=== PATIENT | female | born 1980 | race Caucasian/White ===

== ENCOUNTER → 2022-01-25 16:20 | Outpatient (CLI) | payer OTHER, SELFPAY ==
--- NOTE | ~2022-01-25 | US_ITS ---
US thyroid INDICATION: Enlarged thyroid gland TECHNIQUE: Real-time sonographic images of the thyroid gland were obtained. COMPARISON: No prior studies for comparison. FINDINGS: The right thyroid lobe measures 4.4 x 1.4 x 1.5 cm. The left thyroid lobe measures 5 x 1.5 x 1.7 cm. There is normal echotexture and echogenicity throughout the thyroid gland. No discrete nod ules identified. Normal vascular flow is present. IMPRESSION: 1. Mildly enlarged thyroid gland. No discrete mass. Reviewed, dictated and finalized at location A.
== END ==
PROVIDERS: PCP Nurse Practitioner Family; Visit Provider Nurse Practitioner
DX: E07.9 Disorder of thyroid, unspecified (principal); E04.9 Nontoxic goiter, unspecified
CPT/HCPCS: 76536

== ENCOUNTER → 2022-04-11 16:45 | Outpatient (CLI) | payer OTHER, SELFPAY ==
--- NOTE | ~2022-04-11 | MM_ITS ---
EXAMINATION: MM screening [facility] BI w ricky HISTORY: Screening mammogram TECHNIQUE: Craniocaudal and mediolateral oblique 3-D tomosynthesis images were obtained and synthetic 2-D images were generated. CAD analysis was submitted and interpreted. COMPARISON: 12/13/2015, 01/24/2010 BREAST PARENCHYMAL COMPOSITION: The breasts are heterogeneously dense, which may obscure small masses . FINDINGS: No suspicious mass, calcification, or architectural distortion are identified in either latonya ast to suggest malignancy. There has been no suspicious interval change. IMPRESSION: 1. No mammographic evidence of malignancy. 2. Recommend routine screening mammography in one year. BI-RADS Category 1: Negative Reviewed, dictated and finalized at location A. LLECTUAL PROPERTY COUNSEL
== END ==
PROVIDERS: PCP Nurse Practitioner Family; Visit Provider Nurse Practitioner
DX: Z12.31 Encounter for screening mammogram for malignant neoplasm of breast (principal)
CPT/HCPCS: 77063; 77067

== ENCOUNTER → 2022-06-29 08:55 | Outpatient (CLI) | payer OTHER, SELFPAY ==
--- NOTE | ~2022-06-29 | XR_ITS ---
Right foot Technique: AP, oblique, and lateral views were obtained. Clinical History: Pain Findings: No acute fracture or dislocation is seen. Osseous alignment is anatomic. There is minimal d egenerative change at the lateral aspect of the first MTP joint. Soft tissues are unremarkable. Impression: No fracture or dislocation. Minimal degenerative change of the lateral aspect of the first MTP joint. Reviewed, dictated and finalized at location . ET CHECKER Impression: No fracture or dislocation. Minimal degenerative change of the lateral aspect of the first MTP joint.
== END ==
PROVIDERS: PCP Nurse Practitioner Family; Visit Provider Nurse Practitioner Family
DX: M79.671 Pain in right foot (principal)
CPT/HCPCS: 73630

== ENCOUNTER → 2022-08-28 16:28 | Outpatient (CLI) | payer OTHER, SELFPAY ==
--- NOTE | ~2022-08-28 | MR_ITS ---
EXAMINATION: MR ankle RT wo con DATE: 08/28/2022 17:24 INDICATION: Right ankle pain. TECHNIQUE: Magnetic resonance imaging (MRI) of the right ankle was performed without intravenous cont rast. Sequences included sagittal PD-weighted FS FSE, sagittal PD-weighted FSE, coronal PD-weighted F S FSE, coronal PD-weighted FSE, axial PD-weighted FS FSE, and axial PD-weighted FSE. COMPARISON: Right foot radiographs 06/29/2022 FINDINGS: Medial ankle ligaments: There are changes of prior sprain of superficial component of deltoid ligament characterized by thick ening and increased signal intensity. The deep component of deltoid ligament is normal. There is a sk in marker medial to the deltoid ligament. Lateral ankle ligaments: The anterior and posterior talofibular ligaments, calcaneofibular ligament, and anterior and posterio r tibiofibular ligaments are intact. Tendons: There is a longitudinal split tear of peroneus brevis tendon. Peroneus longus tendon is normal. The a nterior ankle tendons are normal. The medial ankle tendons and Achilles tendon are normal. Plantar fascia: Normal. There is an enthesophyte at the calcaneal attachment. Bones/other: Bone alignment is normal. No fracture. There is a type II navicular. 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 The talar dome is normal. Fluid: There are small ankle and subtalar joint effusions. IMPRESSION: 1. Sprain of superficial component of deltoid ligament. Reviewed, dictated and finalized at location A.
== END ==
PROVIDERS: PCP Nurse Practitioner Family; Visit Provider Podiatrist Foot & Ankle Surgery
DX: S93.421A Sprain of deltoid ligament of right ankle, initial encounter (principal); T14.90XA Injury, unspecified, initial encounter
CPT/HCPCS: 73721

== ENCOUNTER 2023-06-10 12:05 | Outpatient (CLI) | payer OTHER, SELFPAY ==
[2023-06-10 13:49] LABS: Influenza A QL RT-PCR Negative (Negative); Influenza B QL RT-PCR Negative (Negative); RSV RNA, RT-PCR Negative (Negative); SARS-CoV-2 RNA PCR Positive (Negative)
== END 2023-06-10 12:06 | disposition home or self-care (01) ==
LOC: ANHLAB 12:07
PROVIDERS: PCP Nurse Practitioner Family; Visit Provider Nurse Practitioner Family
DX: U07.1 COVID-19 (principal)
CPT/HCPCS: 87637

== ENCOUNTER 2023-08-16 16:08 | Outpatient (CLI) | payer OTHER, SELFPAY ==
--- NOTE | ~2023-08-16 | MM_ITS ---
EXAMINATION: MM screening [facility] BI w ricky HISTORY: Screening TECHNIQUE: Craniocaudal and mediolateral oblique 3-D tomosynthesis images were obtained and synthetic 2-D images were generated. CAD analysis was submitted and interpreted. COMPARISON: Comparison to multiple prior studies sequentially, with oldest reviewed study dated 01/2016. BREAST PARENCHYMAL COMPOSITION: The breasts are heterogeneously dense, which may obscure small masses . FINDINGS: There is no evidence of suspicious mass, calcification, or architectural distortion to sugg est malignancy in either breast. There has been no suspicious interval change. IMPRESSION: 1. No mammographic evidence of malignancy. 2. Recommend routine screening mammography in one year. BI-RADS Category 1: Negative Reviewed, dictated and finalized at location A.
== END 2023-08-16 16:09 ==
LOC: MICIMG 16:09
PROVIDERS: PCP Nurse Practitioner Family; Visit Provider Nurse Practitioner
DX: Z12.31 Encounter for screening mammogram for malignant neoplasm of breast (principal)
CPT/HCPCS: 77063; 77067

== ENCOUNTER 2023-11-14 08:20 | Outpatient (CLI) | payer OTHER, SELFPAY ==
--- NOTE | ~2023-11-14 | US_ITS ---
EXAMINATION: US soft tissue groin LT DATE: 11/14/2023 08:43 INDICATION: Left groin lump TECHNIQUE: Multiple grayscale and Doppler ultrasound images of the region of concern at the left groi n were obtained. COMPARISON: None FINDINGS: There is a normal sized and appearing left inguinal lymph node measuring 12 x 5 x 9 mm with typical c entral echogenic fatty hilum. There is a small fat-containing left inguinal hernia which increases in size with Valsalva at which time it measured approximately 3.6 x 3.0 x 0.8 cm. The hypoechoic orific e to the hernia measures approximately 5-6 mm in diameter. No visible herniated bowel. IMPRESSION: 1. Small fat-containing left inguinal hernia. Reviewed, dictated and finalized at location A.
== END 2023-11-14 08:21 ==
LOC: MICIMG 08:21
PROVIDERS: PCP Nurse Practitioner Family; Visit Provider Nurse Practitioner
DX: K40.90 Unilateral inguinal hernia, without obstruction or gangrene, not specified as recurrent (principal)
CPT/HCPCS: 76882

== ENCOUNTER 2024-04-05 08:30 | Emergency (ER) | payer OTHER, SELFPAY ==
[2024-04-05 08:41] VITALS: BP 115/85; PULSE 125; RESP 16; TEMP 36.6; O2SAT 99
--- NOTE | 2024-04-05 08:52 | ED_ITS ---
HPI - General Adult General Chief complaint: Abdominal Pain Stated complaint: fever,abdominal cramping Time Seen by Provider: 04/05/24 08:50 Source: patient Mode of arrival: ambulatory Limitations: no limitations History of Present Illness HPI narrative: 44 yo F presents with c/o ABD pain, cramping, diarrhea for 5 to 6 days. Has had low grade fever every day since symptoms started. No N/V. Reports that she is hungry but full quicker than usual. Has been feelin bloated for 4 days, today feels like she can't stand up straight due to pain. NO URI symptoms. Denies urinary symptoms. LMP 1 month ago. All systems reviewed and negative except as noted above. Related Data Home Medications Medication Instructions Recorded Confirmed multivitamin 1 tablet PO DAILY 11/14/21 04/05/24 norgestimate 0.25 mg-ethinyl 1 tablet PO DAILY 11/14/21 04/05/24 estradiol 35 mcg tablet (Sprintec (28)) Allergies Allergy/AdvReac Type Severity Reaction Status Date / Time No Known Allergies Allergy Unknown Verified 04/05/24 08:37 Review of Systems Review of Systems: CONSTITUTIONAL: reports fever, chills, or sweats. EYES: Denies visual changes, redness, or discharge. ENT: Denies rhinorrhea, congestion, sore throat, or otalgia. CARDIOVASCULAR: Denies chest pain, palpitations, or edema. RESPIRATORY: Denies cough or dyspnea. GASTROINTESTINAL: reports abdominal pain, cramping, diarrhea, distension. Denies nausea, vomiting GENITOURINARY: Denies dysuria or hematuria. SKIN: Denies rash or itching. MUSCULOSKELETAL: Denies back pain, joint pain, or myalgia. NEUROLOGIC: Denies headache, numbness, or weakness. PSYCHIATRIC: Denies anxiety or depression. All other systems reviewed are negative, except as documented in HPI. [facility] [place] Past Medical History Medical History Acute pain of right foot Allergies BMI 29.0-29.9,adult BMI 30.0-30.9,adult Dysuria Encounter to establish care Enlarged thyroid gland mild; per US on 02/12/22; normal TSH and free t4 Flu-like symptoms GERD (gastroesophageal reflux disease) Gout Wellness examination Surgical History Surgical History H/O umbilical hernia repair Family History Family History Father Skin cancer Hypertension Grandparent Ovarian cancer Grandparent Heart disease Social History Social History Smoking status: Never smoker Alcohol intake: current Alcohol use details: 0-3 drinks per week Substance use: never Substance use type: does not use Comments At time of signature, agree with nursing past medical, surgical, social and family history. There is no relevant family history pertinent to the presenting complaint. Exam 2 Narrative: GENERAL: This is a well-nourished, well-developed patient, in no apparent distress. HEAD: normocephalic, atraumatic. EYES: PERRL. Sclera clear/white. Vision is grossly intact. EARS: External ears normal NOSE: External nose normal NECK: Neck supple, non-tender without lymphadenopathy, masses or thyromegaly. CARDIOVASCULAR: Regular rate and rhythm without murmurs, gallops, or rubs. RESPIRATORY: Clear to auscultation. Breath sounds equal bilaterally. No wheezes, rales, or rhonchi. GASTROINTESTINAL: Abdomen soft, Mild tenderness to right upper quadrant and epigastrium but worse to umbilical, nondistended. Bowel sounds are active. No hepato-splenomegaly, or palpable masses. No guarding. SKIN: warm, Dry, intact with no suspicious lesions or rash, good texture and turgor. NEURO: awake, alert, and oriented to person, place and time. There were no obvious focal neurologic abnormalities. EXTREMITIES: No joint tenderness, effusion, or edema noted. Course Course Level of Care: Express Care Visit Vital Signs Vital signs: Vital Signs Temperature 36.6 C 04/05/24 08:41 Pulse Rate 125 H 04/05/24 08:41 Respiratory Rate 16 04/05/24 08:41 Blood Pressure 115/85 04/05/24 08:41 Pulse Oximetry 99 04/05/24 08:41 Oxygen Delivery Room Air 04/05/24 08:41 Temperature 36.6 C 04/05/24 08:41 Pulse Rate 125 H 04/05/24 08:41 Respiratory Rate 16 04/05/24 08:41 Blood Pressure 115/85 04/05/24 08:41 Pulse Oximetry 99 04/05/24 08:41 Oxygen Delivery Room Air 04/05/24 08:41 Reviewed Transfer Transfered to: [facility] Transportation: Other ( private car) Transfer rationale: umbilical ABD pain, diarrhea, low grade fever. ABD tenderness. transferrin to ER for labs and CT scan Accepting physician: Dr. Matos Medical Decision Making MDM Narrative Medical decision making narrative: transferring patient to [facility] ER for further evaluation of her abdominal pain pain and tenderness. Patient is aware of diagnosis, understands and agrees to treatment plan. Anticipatory guidance given. Patient agrees to follow-up as directed and is aware of reasons to seek care at the emergency department. Portions of this record may have been created with voice recognition software Vital Signs Vital Signs: Vital Signs Temperature 36.6 C 04/05/24 08:41 Pulse Rate 125 H 04/05/24 08:41 Respiratory Rate 16 04/05/24 08:41 Blood Pressure 115/85 04/05/24 08:41 Pulse Oximetry 99 04/05/24 08:41 Oxygen Delivery Room Air 04/05/24 08:41 Temperature 36.6 C 04/05/24 08:41 Pulse Rate 125 H 04/05/24 08:41 Respiratory Rate 16 04/05/24 08:41 Blood Pressure 115/85 04/05/24 08:41 Pulse Oximetry 99 04/05/24 08:41 Oxygen Delivery Room Air 04/05/24 08:41 Discharge Plan Discharge Clinical Impression: Abdominal pain Patient Disposition: Acute Care Hospital Condition: Stable Prescriptions: No Action norgestimate-ethinyl estradiol [Sprintec (28)] 0.25-35 mg-mcg tablet 1 tablet PO DAILY multivitamin Tablet 1 tablet PO DAILY Follow-up/Referrals: Sapna Matos, JESSE [Primary Care Provider] - Time of Disposition: 09:11
== END 2024-04-05 09:11 | disposition short-term general hospital (02) ==
PROVIDERS: Emergency Provider Nurse Practitioner Family; PCP Nurse Practitioner Family
DX: R10.33 Periumbilical pain (principal); R10.11 Right upper quadrant pain; R10.13 Epigastric pain; K21.9 Gastro-esophageal reflux disease without esophagitis; M10.9 Gout, unspecified
CPT/HCPCS: 99212; G0463

== ENCOUNTER 2024-07-06 08:03 | Emergency (ER) | payer OTHER, SELFPAY ==
--- NOTE | 2024-07-06 08:04 | ED.URI ---
HPI - URI/Sore Throat General Chief Complaint: Upper Respiratory Infection Stated Complaint: fever,throat hurts Time Seen by Provider: 07/06/24 08:14 Source: patient, RN notes reviewed and old records reviewed Mode of arrival: ambulatory Limitations: no limitations History of Present Illness HPI Narrative: 44-year-old female presents to the [facility] with complaints of a sore throat and feeling feverish since yesterday. Has taken Tylenol. Onset (ago): day(s) (1) Treatments prior to arrival: acetaminophen Related Data Home Medications ?Medication ?Instructions ?Recorded ?Confirmed ?Last Taken ?Type multivitamin 1 tablet PO DAILY 11/14/21 04/07/24 Unknown History Allergies Allergy/AdvReac Type Severity Reaction Status Date / Time No Known Allergies Allergy Unknown Verified 07/06/24 08:21 Review of Systems Review of Systems: All systems reviewed & are unremarkable except as noted in HPI and below Constitutional: Constitutional: Reports as per HPI, Reports body ache(s), Reports fatigue and Reports fever(s) ENT: Reports as per HPI and Reports sore throat Cardiovascular: Cardiovascular: Reports no additional cardiovascular complaints, Denies chest pain and Denies dyspnea Respiratory: Respiratory: Reports no additional respiratory complaints, Denies chest congestion, Denies cough and Denies dyspnea Musculoskeletal: Musculoskeletal: Reports no additional musculoskeletal complaints Integumentary/Breasts: Skin/Breast: Reports system reviewed and no additional complaints, except as docu PMFSH Past Medical History Medical History Portal vein thrombosis Mesenteric vein thrombosis Flu-like symptoms Dysuria BMI 29.0-29.9,adult Wellness examination Gout Acute pain of right foot Enlarged thyroid gland mild; per US on 02/12/22; normal TSH and free t4 BMI 30.0-30.9,adult Encounter to establish care GERD (gastroesophageal reflux disease) Allergies Surgical History Surgical History H/O umbilical hernia repair Family History Family History Father Skin cancer Hypertension Grandparent Ovarian cancer Grandparent Heart disease Social History Social History Smoking status: Never smoker Alcohol intake: current Alcohol use details: 0-3 drinks per week Substance use: never Substance use type: does not use Comments At the time of my signature, I reviewed and agree with the nursing past medical, surgical, social, and family history. There is no relevant family history pertinent to the patient complaint. Exam Const: General: cooperative, healthy appearing, comfortable, no acute distress, well developed, alert and well nourished Nutritional Appearance: well nourished Orientation/consciousness: patient oriented x3 Limitations: no limitations HENMT: Head: normal to inspection Eyes: General: appearance normal, both eyes and all related structures Alignment and Position: alignment normal Neck: Neck: normal visual inspection, full ROM, no lymphadenopathy and no meningeal signs Chest: Chest palpation & inspection: normal inspection of the chest Resp: Effort & Inspection: normal respiratory effort and able to speak in complete sentences Auscultation: clear to auscultation bilaterally, no crackles, no rales, no rhonchi and no wheezes Cardio: Rate: regular rate Skin: General skin exam: normal color and no rashes or lesions noted Neuro: General: patient oriented x3, gait normal, moves all extremities and no meningeal signs Cognition (Neuro): normal cognition Speech: normal speech Gait exam (Neuro): Normal gait present Extrem: General: normal to inspection, full ROM, capillary refill normal and normal gait Psych: Appearance: grossly normal and well kempt Mental Status: mental status grossly normal Speech and movement: Normal speech and movement present and Clear speech present Affect: normal affect Attitude: cooperative Course Course Level of Care: Express Care Visit Vital Signs Vital signs: Vital Signs Temperature 98.8 F 07/06/24 08:18 Pulse Rate 131 H 07/06/24 08:18 Respiratory Rate 16 07/06/24 08:18 Blood Pressure 147/82 H 07/06/24 08:18 Pulse Oximetry 98 07/06/24 08:18 Oxygen Delivery Room Air 07/06/24 08:18 Temperature 98.8 F 07/06/24 08:18 Pulse Rate 131 H 07/06/24 08:18 Respiratory Rate 16 07/06/24 08:18 Blood Pressure 147/82 H 07/06/24 08:18 Pulse Oximetry 98 07/06/24 08:18 Oxygen Delivery Room Air 07/06/24 08:18 Reviewed MDM - URI/Sore Throat MDM Narrative Medical decision making narrative: Patient sitting in exam room. Nontoxic, vitals stable. Patient is in no acute distress. Patient presents for sore throat and fever since yesterday. Has taken Tylenol. Flu and COVID are negative. Strep is positive. Patient is appropriate for outpatient treatment and follow-up. Patient states as a kid that ?amoxicillin does not work for me. ? will prescribe cefdinir. Patient appropriate for outpatient treatment and follow-up Discharge instructions reviewed with patient, as well as provided in writing per nursing staff. The instructions also include specific and strict return/GO TO THE ER as well as f/u information. All questions have been answered, and the patient deny any further questions with discharge and discharge plan. Some parts of this dictation were generated by voice recognition software and may contain typographical and/or grammatical inaccuracies. Differential Diagnosis Differential diagnosis: Likely upper respiratory infection, otitis media, viral infection, bronchitis, influenza and pharyngitis Lab Data Labs: Lab Results 07/06/24 07/06/24 Range/Units 08:58 08:59 POC Influenza A Ag Negative (Negative) POC Influenza B Ag Negative (Negative) POC SARS CoV-2 Ag Negative (Negative) POC Grp A Strep Screen Positive (Negative) Reviewed Critical Care Time Critical Care Time Critical Care Time: No Discharge Plan Discharge Clinical Impression: Strep pharyngitis Patient Disposition: Home, Self-Care Condition: Stable Instructions: Antibiotic Form, Strep Throat (ED) Additional Instructions: After 24-48 hours on antibiotics, Throw the toothbrush away, start using a new one. Please be sure to wash bed linens especially pillow cases. Repeat once you finish the antibiotics. Do not share drinks. Take Motrin alternating with Tylenol for pain and fever alternating every 4 hours. Increase fluids, avoid caffeine. Give plenty of water, juice, Gatorade, Pedialyte, ice pops in Jell-O Follow up with Primary provider if not getting better this week For new or worsening symptoms go directly to the emergency room Patient Language: Sami Prescriptions: New cefdinir 300 mg capsule 300 mg PO Q12H Qty: 20 0RF No Action multivitamin Tablet 1 tablet PO DAILY Follow-up/Referrals: Sapna Matos NP [Primary Care Provider] - 2 Weeks ([facility] follow up blood pressure check. 147/82) Stand Alone Forms: Work/School Release IP Time of Disposition: 08:31
[2024-07-06 08:18] VITALS: BP 147/82; PULSE 131; RESP 16; TEMP 37.1; O2SAT 98
[2024-07-06 09:00] LABS: EDCOVIDSCREEN Negative (Negative)
[2024-07-06 09:00] LABS: EDINFLUASCREEN Negative (Negative); EDINFLUBSCREEN Negative (Negative); EDSTREPNEGPOS1 Positive (Negative)
== END 2024-07-06 08:33 | disposition home or self-care (01) ==
PROVIDERS: Emergency Provider Nurse Practitioner; PCP Nurse Practitioner Family
DX: J02.0 Streptococcal pharyngitis (principal); Z20.822 Contact with and (suspected) exposure to COVID-19; M10.9 Gout, unspecified; K21.9 Gastro-esophageal reflux disease without esophagitis; Z86.718 Personal history of other venous thrombosis and embolism
CPT/HCPCS: 87426; 87804; 87880; 99213; G0463

== ENCOUNTER 2024-10-23 07:54 | Outpatient (CLI) | payer OTHER, SELFPAY ==
--- OUTSIDE RECORDS SUMMARY | 2024-10-23 07:59 | XMS_ITS | Clinical Summary ---
Author Organization [facility] Address [address] [place] [address] Care Team Providers Care Sub Arc Operator Name Role Phone Gurmeet Graf MD Unavailable [phone] Sapna Matos NP Primary Care Provider [phone] Claire Tran MD Unavailable [phone] Allergies No known active allergies Medications multivitamin with folic acid 400 mcg tablet Take 1 tablet by mouth daily Active apixaban 5 mg (74 tabs) tablets,dose pack Take 10 mg (2 tablets) by mouth 2 (two) times a day for 7 days, then take 5 mg (1 tablet) by mouth 2 (two) times a day thereafter. 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 Portal vein thrombosis 04/05/2024 Abdominal pain, generalized 04/05/2024 Fever, unspecified 04/05/2024 Encounter for contraceptive management 7 Palpitations 08/15/2016 Immunizations Immunization Administration Dates Next Due Influenza, Quadrivalent, Rec ombinant, Egg Free, Preservative Free, Intramuscular 02/01/2020,02/28/2018 Influenza, Quadrivalent, Spl it, Preservative Free, Intramuscular 02/16/2019,01/14/2017 Tdap 09/26/2018 Surgical History Surgery Date Site/Laterality Comments IN RPR UMBILICAL HERNIA < 5 YRS REDUCIBLE Umbilical Hernia Repair - (Added by TW Conv) Medical History Medical History Date Comments Umbilical hernia Family History Medical History Relation Name Comments Hypertension Father Family history of hypertension - (Added by TW Conv) Coronary artery disease Maternal Grandfather Family history of coronary artery disease - (Added by [employer] Conv) Ovarian cancer Maternal Grandmother Ovari an ca - (Added by [employer] Conv) Breast cancer Other Family history of malignant neoplasm of breast - Relation: Aunt (Added by TW Conv) Coronary artery disease Paternal Grandfather Family history of coronary artery disease - (Added by [employer] Conv) Relation Name Status Comments Father Alive Maternal Grandfather Maternal Grandmother Mother Alive Other Paternal Grandfather Social History Tobacco Use Types Packs/Day Years Used Date Smoking Tobacco: Former Smokeless Tobacco: Never Alcohol Use Standard Drinks/Week Comments Yes 0 (1 standard drink = 0.6 oz pur e alcohol) PHQ-2 Answer Date Recorded PHQ-2 Total Score (If total score is 3 or more points, staff should administer the PHQ-9) 0 08/18/2021 Exercise Vital Sign Answer Date Recorde d Days of Exercise per Week 5 days 2019 Minutes of Exercise per Session 30 min 11/23/2019 Personal Safety Answer Date Recorded Have you ever been in or are you currently in a harmful physical or emotional relationship or is someone making you feel afraid or unsafe? 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 Gender Identity Female 11/22/2019 8:08 AM CDT Sexual Orientation Straight 01/02/2021 8: 29 PM CDT Obstetrics History Para Term AB IAB SAB Ectopic Multiple Livin g Live Births 1 1 1 1 1 Date Outcome GA Total Labor Labor/2nd/3rd Weight Sex Type Anes PTL Anika A1 A5 Name Clin 2005 Term M Vag-S pont Living Last Filed Vital Signs Vital Sign Reading Time Taken Comments Blood Pressure 126/86 07/13/2024 8:31 AM CDT Pulse 84 07/13/2024 8:31 AM CDT Temperature 37 C (98.6 F) 07/13/2024 8:31 AM CDT Respiratory Rate 18 07/13/2024 8:31 AM CDT Oxygen Saturation 100% 07/13/2024 8:31 AM CDT Inhaled Oxygen Concentration - - Weight 88.9 kg (196 lb) 07/13/2024 8:31 AM CDT Height 173 cm (5' 8.11) 07/13/2024 8:31 AM CDT Body Mass Index 29.71 07/13/2024 8:31 AM CDT Plan of Treatment Health Maintenance Due Date Last Done Comments Colon Cancer Screening-Colonoscopy 1978 Hepatitis C Screening 1978 Hepatitis B Screening 1996 Cervical Cancer Screening 11/22/2019 11/21/2018 Breast Cancer Screening-Mammogram 11/29/2019 11/28/2018, 10/28/2014 Depression Screening 08/18/2022 08/18/2021, 09/27/19 Regular Well Visit/Exam 18-64 08/18/2022 08/18/2021, 11/23/2020, 11/23/2019, Additional history exists Influenza Vaccine (Season Ended) 2025 02/01/2020, 02/16/2019, 02/28/2018, Additional history exists DTaP/Tdap/Td Vaccine (2 - Td or Tdap) 09/26/2028 09/26/2018 HPV Vaccines Aged Out No longer eligi ble based on patient's age to complete this topic Pneumococcal vaccine <65 Aged Out No longer eligible based on patient's age to complete this topic Procedures Procedure Name Priority Date/Time Associated Diagnosis Comments SCREENING MAMMOGRAM BILATERAL W MOE Schedule Routine, Read Routine (OP Routine) 11/28/2018 8:05 AM CDT Visit for gynecologic examination THINPREP IMAGING PAP AND HPV MRNA E6/E7 REFLEX HPV 16,18/45 Routine 11/21/2018 8:29 AM CDT from Last 3 Months or Most Recently Relevant to Health Maintenance Results * Screening Mammogram Bilateral W Moe (11/28/2018 8:05 AM CDT) Anatomical Region Laterality Modality Breast Bilateral Mammography Narrative 12/05/2018 11:00 AM CDT Mammogram Technique: Bilateral Digital Breast Tomosynthesis, Bilateral C-view 2D Screening mammogram. Views obtained: bilateral craniocaudal and bilateral mediolateral oblique. Computer Aided Detection was performed. Mammogram Findings: The present examination has been compared to a prior imaging study performed on 12/13/2015. The breasts are extremely dense, which lowers the sensitivity of mammography. There is no suspicious abnormality in either breast. Impression: Annual screening mammography is recommended. OVERALL FINAL ASSESSMENT: BI-RADS CATEGORY 1: Negative. Procedure Note Fern Villalobos MD - 12/05/2018 Mammogram Technique: Bilateral Digital Breast Tomosynthesis, Bilateral C-view 2D Screening mammogram. Views obtained: bilateral craniocaudal and bilateral mediolateral oblique. Computer Aided Detection was performed. Mammogram Findings: The present examination has been compared to a prior imaging study performed on 12/13/2015. The breasts are extremely dense, which lowers the sensitivity of mammography. There is no suspicious abnormality in either breast. Impression: Annual screening mammography is recommended. OVERALL FINAL ASSESSMENT: BI-RADS CATEGORY 1: Negative. Gurmeet Graf MD IM MAMMO PROCEDURES Final Result * ThinPrep Imaging Pap and HPV mRNA E6/E7 Reflex HPV 16,18/45 (11/21/2018 8:29 AM CDT) CLINICAL INFORMATION: Oral contraceptives [facility] [place] LMP 11/08/18 [facility] [place] Previous Pap Information not provided [facility] [place] Prev. Bx Information not provided [facility] [place] SOURCE: Cervix, Endocervix [facility] - [place] Pap, specimen adequacy Satisfactory for evaluation. Endocervical/lewis sformation zone component present. [facility] [place] HPV interp Negative for intraepithelial lesion or malignancy. [facility] [place] Infection: Shift in vaginal isela suggestive of bacterial vaginosis. [facility] [place] COMMENTS This Pap test has been evaluated with computer assisted technology. [facility] [place] Technical Developer LESLIE WADE(ASCP) CT screening location: [place] [address] [place] [address] [facility] Review jet man LESLIE HAAS(ASCP) CT screening location: [place] [address] [address] KRISTY Villegas [address] [facility] DIAGNOSTIC [facility] Comment [facility] Comment: EXPLANATORY NOTE: The Pap is a screening test for cervical cancer. It is not a diagnostic test and is subject to false negative and false positive results. It is most reliable when a satisfactory sample, regularly obtained, is submitted with relevant clinical findings and history, and when the Pap result is evaluated along with historic and current clinical information. Human papillomavirus RNA, High Risk E6/E7 Not Detected Not Detected [facility] Comment: This test was performed using the APTIMA HPV Assay ([employer] This assay detects E6/E7 viral messenger RNA (mRNA) from 14 high-risk HPV types (16,18,31,33,35,39,45,51,52,56,58,59,66,68). The analytical performance characteristics of this assay have been determined by [employer]. The modifications have not been cleared or approved by the FDA. This assay has been validated pursuant to the CLIA regulations and is used for clinical purposes. 11/21/2018 8:29 AM CDT 11/22/2018 8:37 AM CDT Narrative [facility] - 11/26/2018 4:20 PM CDT FASTING: UNKNOWN Resulting Agency Comment Performing Organization Information: Site ID: [id number] Name: [facility] Address: [address] [place] [address] Director: Octavio Matos D.O., MPH Site ID: [place] [facility]: [facility] Address: [address] [place] [address] Director: Bernice Coates Gurmeet Graf MD LAB CYTOLOGY ORDERABLES Fi nal Result [facility] BRADNON Meza from Last 3 Months or Most Recently Relevant to Health [place] [address] [place] [address] [place] [address] [place] [address] [facility] [address] [employer] OPEN ACCESS Advance Directives For more information, please contact: [phone] * Full Code (Latest Code Status on File) Date Activated Date Inactivated Comments 04/05/2024 8:04 PM 04/06/2024 5:43 PM Care Teams Sub Arc Operator Relationship Specialty Start Date End Date Sapna Matos NP [address] [facility] [address] [place] [address] PCP - General Family Medicine 06/20/22 Gurmeet Graf MD [address] [facility] [address] [place] [address] Buffet Attendant Obstetrics and Gynecology 09/26/18 Claire Tran MD [address] [place] [address] Referring Physician Gynecology 04/06/24
--- OUTSIDE RECORDS SUMMARY | 2024-10-23 07:59 | XMS_ITS | Referral Summary ---
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 Gurmeet Graf MD [facility]ED[place] Final Result * ThinPrep Imaging Pap and HPV mRNA E6/E7 Reflex HPV 16,18/45 (11/21/2018 8:29 AM CDT) CLINICAL INFORMATION: Oral contraceptives [facility] [place] LMP 11/08/18 [facility] [place] Previous Pap Information not provided [facility] [place] Prev. Bx Information not provided [facility] [place] SOURCE: Cervix, Endocervix [facility] - Pap, specimen adequacy Satisfactory for evaluation. Endocervical/lewis sformation zone component present. [facility] - HPV interp Negative for intraepithelial lesion or malignancy. [facility] - Infection: Shift in vaginal isela suggestive of bacterial vaginosis. [facility] - COMMENTS This Pap test has been evaluated with computer assisted technology. [facility] - Tankage Supervisor MAURO CT(ASCP) CT screening location: [place] [address] [place] [address] [facility] DIAGNOSTIC - Review flue lining dipper SAMINA CT(ASCP) CT screening location: [place] [address] [place] [address] [facility] DIAGNOSTIC - Comment [facility] - Comment: EXPLANATORY NOTE: The Pap is a [...] High Risk E6/E7 Not Detected Not Detected [facility] Comment: This test was performed using the APTIMA HPV Assay ([employer] This assay detects E6/E7 viral messenger RNA (mRNA) from 14 high-risk HPV types (16,18,31,33,35,39,45,51,52,56,58,59,66,68). The analytical performance characteristics of this assay have been determined by [employer]. The modifications have not been cleared or approved by the FDA. This assay has been validated pursuant to the CLIA regulations and is used for clinical purposes. 11/21/2018 8:29 AM CDT 11/22/2018 8:37 AM CDT Narrative [facility] - 11/26/2018 4:20 PM CDT FASTING: UNKNOWN Resulting Agency Comment Performing Organization Information: Site ID: [id number] Name: [facility] Address: [address] [place] [address] Director: Octavio Matos D.O., MPH Site ID: [id number] Name: [facility] Address: [address] [place] [address] Director: Bernice Coates us Gurmeet Graf MD LAB CYTOLOGY ORDERABLES Fi nal Result [facility] [place], [place] [facility] [place] Kamuela BRANDON from Last 3 Months or Most Recently Relevant to Health Maintenance Insurance [employer] OPEN ACCESS [employer] OPEN ACCESS [employer] [place] [address] [employer] OPEN ACCESS Advance Directives For more information, please contact: [phone] * Full Code (Latest Code Status on File) Date Activated Date Inactivated Comments 04/05/2024 8:04 PM 04/06/2024 5:43 PM Care Teams Air Tool Operator Relationship Specialty Start Date End Date Sapna Matos NP [address] [facility] [address] [place] [address] PCP - General Family Medicine 06/20/22 Gurmeet Graf MD [address] [facility] [address] [place] [address] Farmer Vegetable Obstetrics and Gynecology 09/26/18 Claire Tran MD [address] [facility] [address] [place] [address] Referring Physician Gynecology 04/06/24
== END 2024-10-23 07:55 | disposition home or self-care (01) ==
LOC: ANHSURGERY 07:58
PROVIDERS: PCP Nurse Practitioner Family; Visit Provider Surgery
DX: K40.90 Unilateral inguinal hernia, without obstruction or gangrene, not specified as recurrent (principal)
CPT/HCPCS: 36415; 86850; 86900; 86901

== ENCOUNTER 2024-10-28 00:05 | Day surgery (SDC) | payer OTHER, SELFPAY ==
[2024-10-22 15:43] VITALS: BMI 28.9
--- NOTE | 2024-10-22 15:46 | PC.NURSE ---
Report to the Outpatient Waiting Room, entrance under the green pavilion located off [facility], at time _0730_ on date _[id number]_. Planned Procedure Time: _0930_.? Time changes happen often and if your time is changed the preop area will call you the afternoon before. - You and your visitor will be asked to self-screen and do not enter if you have any COVID symptoms. Please call surgeon if you need to reschedule. - A mask is optional within the hospital at this time. Patients may have clear liquids (water, carbonated beverages, clear teas, apple juice) until 3 hours prior to surgery with a maximum of 20 ounces. - No food from midnight until time of surgery and no smoking, or chewing tobacco (or any form of nicotine). No chewing gum, candy or mints. Take only the following medications with a SIP of water on the morning of surgery: ____None____ DO NOT STOP ANY OF YOUR OTHER PRESCRIPTION MEDICATIONS PRIOR TO SURGERY EXCEPT THE FOLLOWING Hold all vitamins and supplements for 3 days per anesthesiologist. Medications to discontinue per physician Date to take last uulb__[id number]___ Please no make-up, nail nicaraguan, hairspray, perfume, deodorant, or body powder the day of surgery.? No jewelry (including any body piercings) or valuables the day of surgery, leave them at home.? Please take a shower or bath the night before, or the morning of, surgery with an antibacterial soap.? Wear comfortable, loose fitting clothing.? - Jewelry must be removed prior to entering the operating room.? Rings and piercings that are not removed may be cut off. - The hospital will not accept responsibility for valuables.? - Please leave all valuables, including medications, at home the day of surgery. If you are going home after surgery, a licensed refrigerated national truck driver must drive you home.? - NO public transportation without another adult if you receive anesthesia. - We recommend that an adult stay with you for 24 hours following discharge. - We also recommend that you do not drive, make important decision, drink alcoholic beverages, or take any drugs that were not prescribed by your health care provider for at least 24 hours after your discharge time. Follow any additional instructions given to you from your surgeon. Telephone instructions given to __Erin___and asked if any additional questions and then verbalized understanding. Patient advised to call surgeon office or pre surgery nurse liaison [phone] if any additional questions.
--- NOTE | 2024-10-28 08:35 | WPDHPUPDATE1 ---
History and Physical Update Update Date/Time: 10/28/24 08:35 History and Physical has been reviewed, including an updated exam of the patient. There are NO changes in the patient's condition. Risks, benefits, and alternatives have been discussed and questions answered. Patient agrees to proceed with procedure.
--- NOTE | 2024-10-28 08:35 | PM.IMHP ---
H&P: HPI History of Present Illness Date/Time: 10/28/24 08:35 Chief Complaint: Left inguinal hernia Narrative: This is a 44-year-old woman who presents for left inguinal hernia repair. She was last seen in the office in February of 2024 but wanted to delay surgery until October due to her work schedule. She reports no significant changes since last seen in the office. Review of Systems Review of Systems: All systems reviewed & are unremarkable except as noted in HPI and below Constitutional: Constitutional: Denies chills, Denies fever(s), Denies headache(s) and Denies weight loss Eyes: Eyes: Denies change in vision ENT: Denies dizziness, Denies headache(s), Denies neck mass and Denies throat swelling Cardiovascular: Cardiovascular: Denies chest pain, Denies lightheadedness and Denies dyspnea Respiratory: Respiratory: Denies cough, Denies dyspnea and Denies wheezing Gastrointestinal: Gastrointestinal: Denies abdominal pain, Denies change in bowel habits, Denies nausea and Denies vomiting Genitourinary: Genitourinary: Denies hematuria and Denies dysuria Musculoskeletal: Musculoskeletal: Reports as per HPI Integumentary/Breasts: Skin/Breast: Reports as per HPI Neurologic: Denies dizziness and Denies headache(s) Allergic/Immunologic: Allergic/Immunologic: Denies throat swelling and Denies wheezing PMFSH Past Medical History Medical History Portal vein thrombosis Mesenteric vein thrombosis Flu-like symptoms Dysuria BMI 29.0-29.9,adult Wellness examination Gout Acute pain of right foot Enlarged thyroid gland mild; per US on 02/12/22; normal TSH and free t4 BMI 30.0-30.9,adult Encounter to establish care GERD (gastroesophageal reflux disease) Allergies Surgical History Surgical History H/O umbilical hernia repair Family History Family History Father Skin cancer Hypertension Grandparent Ovarian cancer Grandparent Heart disease Social History Social History Smoking status: Never smoker Alcohol intake: current Alcohol use details: 0-3 drinks per week Substance use: never Substance use type: does not use Living arrangements: with family Spiritual care concerns: No Meds Home Medications and Allergies Home Medications ?Medication ?Instructions ?Recorded ?Confirmed ?Type multivitamin 1 tablet PO DAILY 11/14/21 10/22/24 History Allergies Allergy/AdvReac Type Severity Reaction Status Date / Time No Known Allergies Allergy Unknown Verified 10/22/24 15:36 Exam Const: General: no acute distress and alert Orientation/consciousness: patient oriented x3 HENMT: Head: normocephalic and atraumatic Ears: hearing grossly normal bilaterally Face/Nose/Sinus: Normal nares present Mouth: Yes Normal oral and palatal mucosa present Eyes: Periorbital: periorbital findings normal Sclera: sclerae normal EOM: EOMs intact bilaterally Neck: Neck: normal visual inspection, no lymphadenopathy and trachea midline Chest: Chest palpation & inspection: normal inspection of the chest Resp: Effort & Inspection: normal respiratory effort Auscultation: clear to auscultation bilaterally Cardio: Jugular venous distension: no JVD Rate: regular rate Rhythm: regular rhythm Heart sounds: S1 normal heart sound present and S2 normal heart sound present Peripheral pulses: Peripheral pulses 2+ throughout GI: Inspection: normal to inspection GI Palp: Yes Soft to palpation, No Tenderness to palpation present (GI), No Guarding due to palpation present (GI) and No Rebound tenderness present Percussion: Yes normal to percussion Auscultation: normal bowel sounds Other: Easily palpable left inguinal hernia, soft nontender and reducible : General: Yes no CVA tenderness Back/Spine/Pelvis: Back: no CVA tenderness Neuro: General: patient oriented x3, no focal motor deficits and CN's II-XI intact bilaterally Cognition (Neuro): normal cognition Speech: normal speech Motor exam (neuro): 5/5 motor strength present throughout Extrem: General: capillary refill normal and no clubbing, cyanosis or edema Assessment and Plan Assessment and plan (1) Inguinal hernia without obstruction or gangrene: Qualifiers: Laterality: unilateral Recurrence: non-recurrent Qualified Code(s): K40.90 - Unilateral inguinal hernia, without obstruction or gangrene, not specified as recurrent Code(s): K40.90 - Unilateral inguinal hernia, without obstruction or gangrene, not specified as recurrent Status: Acute Assessment and Plan: I have recommended laparoscopic left inguinal hernia repair with mesh, da Jez assisted. I have discussed the procedure, risks, benefits, and alternatives with the patient. All questions answered. No changes since last seen in office.
[2024-10-28] MEDS: ACETAMINOPHEN 500 MG TABLET 1000 MG PO (08:45)
[2024-10-28] MEDS: LACTATED RINGERS 1,000 ML 30 ML IV CONT (08:45)
[2024-10-28] MEDS: KETOROLAC 15 MG/ML VIAL (*BKC) IV PUSH (08:45)
[2024-10-28 08:58] VITALS: BMI 29.6
--- NOTE | 2024-10-28 09:00 | P.PNAN_ITS ---
Anes - Initial Pre Proc Eval Procedure: Operation Date: 10/28/24 09:30 Proposed Procedures p Laparoscopic Left Inguinal Hernia Repair with Mesh, Davinci Assisted - Woody Geronimo DO Date/Time: 10/28/24 09:00 Surgeon: Woody Geronimo DO Pre Op Diagnosis: left inguinal hernia Patient Data Age: 44 Gender: F Height: 1.73 m Weight: 86.4 kg Allergies Allergy/AdvReac Type Severity Reaction Status Date / Time No Known Allergies Allergy Unknown Verified 10/28/24 08:58 Home Medications ?Medication ?Instructions ?Recorded ?Confirmed ?Type multivitamin 1 tablet PO DAILY 11/14/21 10/22/24 History Patient hx anesthesia problems: none Family hx anesthesia problems: none Results Review: All pre-operative results and documents have been reviewed as part of the pre- operative evaluation. [facility] Past Medical History Medical History Portal vein thrombosis Mesenteric vein thrombosis Flu-like symptoms Dysuria BMI 29.0-29.9,adult Wellness examination Gout Acute pain of right foot Enlarged thyroid gland mild; per US on 02/12/22; normal TSH and free t4 BMI 30.0-30.9,adult Encounter to establish care GERD (gastroesophageal reflux disease) Allergies Surgical History Surgical History H/O umbilical hernia repair Family History Family History Father Skin cancer Hypertension Grandparent Ovarian cancer Grandparent Heart disease Social History Social History Smoking status: Never smoker Alcohol intake: current Alcohol use details: 0-3 drinks per week Substance use: never Substance use type: does not use Living arrangements: with family Spiritual care concerns: No Anes - Eval Final PreProcedure Day of Procedure 10/28/24 09:00 Patient weight: overweight Heart: regular rate and rhythm Lungs: clear to auscultation Airway: Mallampati scale class 1 Neurological: alert and oriented Last oral intake: >/= 8 hours ASA classification: II Emergent: no Anesthetic plan: proceed Anesthesia type and monitoring: general ETT and standard monitoring Results Review: All pre-operative results and documents have been reviewed as part of the pre- operative evaluation. Informed Consent: The patient's anesthetic plan and its attendant risks and benefits were discussed with the patient/family/POA. Questions were solicited and answers provided to the satisfaction of the patient/family/POA.
[2024-10-28] MEDS: ceFAZolin 2 GM/D5W 50 ML 2 GM/50 ML BAG IVPB (09:04)
[2024-10-28] MEDS: BUPIVACAINE/EPINEPHRINE 0.5% 30 ML VIAL INFILTRATE (10:00)
--- NOTE | 2024-10-28 10:03 | P.OP_ITS ---
Procedure Note - Detailed Date of Procedure 10/28/24 Pre-op Diagnosis left inguinal hernia Post-op Diagnosis Same (Small indirect left inguinal hernia) Procedure Performed Laparoscopic left inguinal hernia repair with mesh, [facility] assisted Surgeon Woody Geronimo DO Anesthesia General and Local (0.5% bupivacaine with epinephrine) Indications This is a 44-year-old woman who presented with a left inguinal bulge that she 1st noticed about 5-6 years ago. She noticed that this would increase in size while standing but would go away when lying flat. She was found to have a small reducible left inguinal hernia on exam. She also had an ultrasound which showed evidence of a small fat containing left inguinal hernia. Discussions were made with the patient about treatment options and decision was made to proceed with robotic assisted laparoscopic left inguinal hernia repair with mesh. Findings Robotic assisted laparoscopic left inguinal hernia repair with mesh was performed. The patient was found to have a small indirect left inguinal hernia containing preperitoneal fat. There was no evidence of a right inguinal hernia. She was noted to have some dilated parametrial vessels and small left ovarian cysts but no other significant findings. A robotic transabdominal preperitoneal approach was utilized for hernia repair. Once a wide enough preperitoneal pocket was created and the hernia sac and preperitoneal fat was reduced, I then placed a large left 3DMax mid mesh overlying the entire left myopectineal orifice. Description of Procedure Procedure as well as risks, benefits, and alternatives were discussed with the patient. Written consent was obtained and placed in chart prior to procedure. Patient was brought back to surgical suite. She was placed supine on operating table. Time-out was done to confirm patient and procedure. She was then intubated by Anesthesia Department. Her abdomen was prepped and draped in sterile fashion using chlorhexidine prep. 0.5% bupivacaine with epinephrine was infiltrated at each location for incision. An 8 mm incision was made in the left lateral abdomen, and a 5 mm Optiview trocar was advanced through the abdominal layers under direct visualization. Once inside the abdominal cavity, carbon dioxide insufflation was used to create a pneumoperitoneum. A camera was inserted and the abdominal cavity was inspected. The patient was placed in slight Trendelenburg position. An 8 millimeter incision was made on the right lateral abdomen and an 8 millimeter trocar was inserted under direct visualization. Another 8 millimeter incision was made just superior to the umbilicus and an 8 millimeter trocar was inserted under direct visualization. The 5 mm port was then removed and this was replaced with another 8 mm robotic port. The robotic arms were brought up to the patient's bedside and secured to the ports. The camera and instruments were inserted. I then moved over to the robotic console and took control of the camera and instruments. After careful inspection of the abdominal cavity, I began scoring the peritoneum along the left lower quadrant using scissors with electrocautery. The preperitoneal plane was entered and this was carefully dissected caudally along the inferior epigastric vessels. Careful dissection with scissors with electrocautery and blunt dissection was used to continue this dissection. I dissected far enough laterally to allow for mesh placement, and also dissected medially to identify the pubic arch and Miguelangel's ligament. The hernia sac was identified and carefully dissected posteriorly. The round ligament was also identified and the peritoneum was carefully dissected far enough posteriorly to allow for mesh placement. I then also transected the round ligament using scissors with elect rocautery to allow for mesh to lie flat within the myopectineal orifice. The preperitoneal fat going up into the deep inguinal ring was then reduced. Once an adequate pocket was created, I then placed the mesh within the preperitoneal pocket and carefully unfolded it. The mesh was centered on the hernia defect with adequate overlap circumferentially. The inferior edge of the mesh was inspected to ensure that it was far enough away from the peritoneal edge. The mesh appeared in proper position overlying the entire myopectineal orifice. The mesh was secured using 3-0 Vicryl simple interrupted sutures in Miguelangel's ligament, the superior medial edge, and superior lateral edge of the mesh. The peritoneum was then closed over the mesh using a 3-0 V-lock running absorbable suture. The robotic instruments were removed. The robotic arms were disengaged from the ports and moved away from the bedside. The patient was flattened out in bed, the ports were removed under direct visualization, and the pneumoperitoneum was released. The skin of the incisions was approximated using 4-0 Monocryl subcuticular suture, and Exofin glue was applied on top. The patient was awakened from anesthesia, extubated, and transferred to recovery. Implants Large left 3DMax mid mesh Estimated Blood Loss 5 Complications No immediate complications Condition Stable Disposition Same day [facility] Billing Surgery - Charge Forward: Surgery Billing
[2024-10-28 10:09] VITALS: BP 107/64; PULSE 91; RESP 18; TEMP 36.3; O2SAT 100
[2024-10-28 10:15] VITALS: BP 131/82; PULSE 99; RESP 17; O2SAT 97
[2024-10-28 10:30] VITALS: BP 100/57; PULSE 82; RESP 17; O2SAT 99
[2024-10-28 10:40] VITALS: BP 107/60; PULSE 83; RESP 16; O2SAT 100
[2024-10-28 10:49] VITALS: BP 117/76; PULSE 64
[2024-10-28 11:15] VITALS: BP 128/64; PULSE 69
== END 2024-10-28 11:35 | disposition home or self-care (01) ==
PROVIDERS: PCP Nurse Practitioner Family; Visit Provider Surgery
PROC: 8E0Y4CZ Robotic Assisted Procedure of Lower Extremity, Percutaneous Endoscopic Approach (ICD-10-PCS; CPT 49650; principal; 2024-10-28 09:30)
DX: K40.90 Unilateral inguinal hernia, without obstruction or gangrene, not specified as recurrent (principal); N83.292 Other ovarian cyst, left side; K21.9 Gastro-esophageal reflux disease without esophagitis; Z86.718 Personal history of other venous thrombosis and embolism; Z84.0 Family history of diseases of the skin and subcutaneous tissue; Z80.41 Family history of malignant neoplasm of ovary; Z82.49 Family history of ischemic heart disease and other diseases of the circulatory system
CPT/HCPCS: 49650; S2900; A9270; C1781; J0690; J1885; J2250; J3010; J7120